=== PATIENT | male | born 1955 | race African-American/Black ===

== ENCOUNTER 2024-12-24 02:44 | Emergency (ER) | payer BC, MEDICARE ==
[~2024-12-24] VITALS: Ht 190.5 cm; Wt 107.0 kg
[2024-12-24 02:47] VITALS: BP_DIAS 79; O2SAT 99
[2024-12-24 03:30] LABS: HEMATOCRIT. 38.9 % (42.0-52.0); HEMOGLOBIN. 12.8 g/dL (14.0-18.0); MEAN PLATELET VOLUME 9.9 fl (7.4-10.4); PLATELET 248 x1000/uL (130-400); RED BLOOD CELL COUNT 4.44 mill/uL (4.7-6.1); RED CELL DISTRIBUTION WIDTH 14.4 % (11.6-14.6)
[2024-12-24 03:36] VITALS: BP_SYST 90; PULSE 89; RESP 14; TEMP 36.8; O2SAT 96
[2024-12-24 03:41] LABS: CLARITY URINE CLEAR (CLEAR); COLOR URINE YELLOW (YELLOW); CREATININE 1.0 mg/dL (0.6-1.3); GLUCOSE URINE NEGATIVE (NEGATIVE); KETONES URINE NEGATIVE (NEGATIVE); LEUKOCYTE ESTERASE URINE NEGATIVE (NEGATIVE); NITRITE URINE NEGATIVE (NEGATIVE); OCCULT BLOOD URINE 1+ (NEGATIVE); PH URINE 5.0 (4.5-8.0); PROTEIN URINE NEGATIVE (NEGATIVE); SPECIFIC GRAVITY URINE 1.008 (1.005-1.030); UREA NITROGEN BLOOD 11 mg/dL (9-23); UROBILINOGEN URINE 0.2 E.U./dL (0.2-1.0)
[2024-12-24 03:49] LABS: EOSINOPHILS % MANUAL 4.0 % (0.0-5.0); LYMPHOCYTES % MANUAL 17.0 % (20.0-50.0); MONOCYTES % MANUAL 6.0 % (2.0-8.0); NEUTROPHILS % MANUAL 73.0 % (45.0-75.0); PLATELET ESTIMATE NORMAL
[2024-12-24 03:53] LABS: BACTERIA URINE TRACE; SQUAMOUS EPITHELIAL CELL URINE RARE /lpf (RARE/1+); WBC URINE 0-2 /hpf (0-2)
[2024-12-24] MEDS ORDERED: CIPR-264 MT (04:27)
[2024-12-24] MEDS ORDERED: TAMS-54 MT (04:27)
== END 2024-12-24 05:01 | disposition home or self-care (01) ==
LOC: ER 03:08
DX: R33.9 Retention of urine, unspecified (principal); I10 Essential (primary) hypertension; Z79.899 Other long term (current) drug therapy
CPT/HCPCS: 36415; 80048; 81003; 85025; 99283